=== PATIENT | female | born 1995 | race African-American/Black ===

== ENCOUNTER 2017-10-21 15:11 | Emergency (ER) | payer OTHER ==
[~2017-10-21] VITALS: Ht 165.1 cm; Wt 49.8 kg
[~2017-10-21 15:11] MED LIST: BCPILLS PO
[2017-10-21 15:39] VITALS: Ht 165.1 cm; Wt 49.8 kg
--- NOTE | 2017-10-21 16:48 | EMERGENCY ROOM VISIT NOTE ---
History Report prepared by Leslieibpatel: Shashi Morales Under the Supervision of: Dr. García Botello M.D. First contact with patient: 16:14 Chief Complaint: VAGINAL DISCHARGE Stated Complaint: VAGINAL ISSUES History of Present Illness The patient is a 22 year old black female with a past medical history of UTI who presents to the ED with a cc of constant vaginal discomfort beginning this morning. She rates her discomfort as a 6/10 in severity. She describes the sensation as a tingling sensation. Positive tingling sensation. Negative surgeries, allergies, changes in products, fevers, chills, vaginal discharge, vaginal bleeding, nausea, vomiting, a similar previous experience. The patient states that she took a picture and noticed a lump in her vaginal area. The patient reports that her last normal menstrual period was 2-3 weeks ago. She states that she had a UTI a month ago, but admits it has been treated. Source of History: patient Onset: this morning Position: other (vaginal area) Symptom Intensity: 6/10 Quality: tingling Timing: constant Associated Symptoms: No fevers, No chills, No nausea, No vomiting Review of Systems See HPI for pertinent positives and negatives. A total of ten systems were reviewed and were otherwise negative. Past Medical & Surgical Medical Problems: (1) UTI (urinary tract infection) Family History Patient reports no known family medical history. Social History Smoking Status: Never Smoker Housing Status: lives with roommate Occupation Status: [employer] student Current/Historical Medications Scheduled Control Pills ( Control Pills), 1 TAB PO DAILY Cephalexin (Keflex), 1 CAP PO BID Allergies Coded Allergies: No Known Allergies (Unverified , 10/21/17) Physical Exam Vital Signs Date Time Temp Pulse Resp B/P (MAP) Pulse Ox O2 Delivery O2 Flow Rate FiO2 10/21/17 18:21 37.0 56 18 103/64 100 Room Air 10/21/17 17:24 60 16 102/65 98 Room Air 10/21/17 17:15 58 10/21/17 16:56 98 Room Air 10/21/17 15:39 36.5 66 20 108/73 100 Room Air Physical Exam GENERAL: Awake, alert, well-appearing, NAD HENT: Normocephalic, atraumatic. EYES: Normal conjunctiva. Sclera non-icteric. NECK: Supple. No nuchal rigidity. FROM. RESPIRATORY: CTAB, no rhonchi, wheezing, crackles CARDIAC: RRR, no MRG ABDOMEN: Soft, NTND, BS+ MSK: No chest wall TTP, no LE edema NEURO: GCS 15, CN 2-12 intact, moves all 4s on command SKIN: No rash or jaundice noted. : inflamed urethra, no swelling to lateral labia nor area where bartholin's glands noted, no pain to palpation, no discharge seen on external exam Medical Decision & Procedures Laboratory Results 10/21/17 16:40 Red Blood Count 4.12, Mean Corpuscular Volume 92.0, Mean Corpuscular Hemoglobin 29.9, Mean Corpuscular Hemoglobin Concent 32.5, Mean Platelet Volume 10.6, Neutrophils (%) (Auto) 48.1, Lymphocytes (%) (Auto) 43.5, Monocytes (%) (Auto) 6.6, Eosinophils (%) (Auto) 1.1, Basophils (%) (Auto) 0.7, Neutrophils # (Auto) 2.20, Lymphocytes # (Auto) 1.99, Monocytes # (Auto) 0.30, Eosinophils # (Auto) 0.05, Basophils # (Auto) 0.03 10/21/17 16:40 Test 10/21/17 16:40 White Blood Count 4.57 K/uL (4.8-10.8) Red Blood Count 4.12 M/uL (4.2-5.4) Hemoglobin 12.3 g/dL (12.0-16.0) Hematocrit 37.9 % (37-47) Mean Corpuscular Volume 92.0 fL (80-100) Mean Corpuscular Hemoglobin 29.9 pg (25-34) Mean Corpuscular Hemoglobin Concent 32.5 g/dl (32-36) Platelet Count 182 K/uL (130-400) Mean Platelet Volume 10.6 fL (7.4-10.4) Neutrophils (%) (Auto) 48.1 % Lymphocytes (%) (Auto) 43.5 % Monocytes (%) (Auto) 6.6 % Eosinophils (%) (Auto) 1.1 % Basophils (%) (Auto) 0.7 % Neutrophils # (Auto) 2.20 K/uL (1.4-6.5) Lymphocytes # (Auto) 1.99 K/uL (1.2-3.4) Monocytes # (Auto) 0.30 K/uL (0.11-0.59) Eosinophils # (Auto) 0.05 K/uL (0-0.5) Basophils # (Auto) 0.03 K/uL (0-0.2) RDW Standard Deviation 44.8 fL (36.4-46.3) RDW Coefficient of Variation 13.5 % (11.5-14.5) Immature Granulocyte % (Auto) 0.0 % Immature Granulocyte # (Auto) 0.00 K/uL (0.00-0.02) Urine Color YELLOW Urine Appearance CLEAR (CLEAR) Urine pH >= 9.0 (4.5-7.5) Urine Specific [place] 1.025 (1.000-1.030) Urine Protein NEG (NEG) Urine Glucose (UA) NEG (NEG) Urine Ketones TRACE (NEG) Urine Occult Blood NEG (NEG) Urine Nitrite NEG (NEG) Urine Bilirubin NEG (NEG) Urine Urobilinogen NEG (NEG) Urine Leukocyte Esterase TRACE (NEG) Urine WBC (Auto) 1-5 /hpf (0-5) Urine RBC (Auto) 0-4 /hpf (0-4) Urine Hyaline Casts (Auto) 1-5 /lpf (0-5) Urine Epithelial Cells (Auto) >30 /lpf (0-5) Urine Bacteria (Auto) 1+ (NEG) Urine Test NEG (NEG) Anion Gap 6.0 mmol/L (3-11) Est Creatinine Clear Calc Drug Dose 95.8 ml/min Estimated GFR () 136.5 Estimated GFR (Non- 117.7 BUN/Creatinine Ratio 17.1 (10-20) Calcium Level 8.3 mg/dl (8.5-10.1) Total Bilirubin 0.4 mg/dl (0.2-1) Aspartate Amino Transf (AST/SGOT) 15 U/L (15-37) Alanine Aminotransferase (ALT/SGPT) 15 U/L (12-78) Alkaline Phosphatase 35 U/L (45-117) Total Protein 6.5 gm/dl (6.4-8.2) Albumin 3.5 gm/dl (3.4-5.0) Globulin 3.0 gm/dl (2.5-4.0) Albumin/Globulin Ratio 1.2 (0.9-2) Laboratory results reviewed by me Medications Administered Medications (Trade) Dose Ordered Sig/Jamarcus Route Start Time Stop Time Status Last Admin Dose Admin Cephalexin Monohydrate (Keflex Cap) 500 mg NOW ONCE PO 10/21/17 17:45 10/21/17 17:46 DC 10/21/17 17:49 500 MG Ibuprofen (Motrin Tab) 600 mg NOW STAT PO 10/21/17 17:42 10/21/17 17:43 DC 10/21/17 17:48 600 MG Acetaminophen (Tylenol Tab) 1,000 mg NOW STAT PO 10/21/17 17:42 10/21/17 17:43 DC 10/21/17 17:49 1,000 MG ED Course 1627: The patient was evaluated in room C01B. A complete history and physical exam was performed. 180: I reevaluated the patient. Discussed results and discharge instructions: She verbalized understanding and agreement. The patient is ready for discharge. Medical Decision Triage Nursing notes reviewed. The patient's presentation and history were concerning for cystitis, kidney stone, STD, pema, bartholin's cyst/abscess, cellulitis, abscess. Patient was seen and evaluated the bedside. is no prior medical problems. Patient noted that she has some mild discomfort when wiping when urinating today patient did take a temperature. Patient noted that the discomfort was mainly midline. Patient denied any hematuria. Patient denies any vaginal discharge or bleeding. Less pressure. His proximal to 2 weeks prior normal. Patient denies any trauma to the area. Patient denies any fevers , chills, nausea, vomiting. Asians exam is fairly unremarkable. exam did not show swelling to the lateral area concerning for Bartholin's cysts. Patient did have an inflamed enlarged urethra. Patient's UA with questionable cystitis however given the patient's symptoms we will treat. Patient was given first dose of Keflex here. Patient's white blood cell count within normal limits. Patient had normal kidney function. Patient was deemed suitable for outpatient follow-up and treatment. Patient was given strict follow-up, discharge, and return precautions. All questions were answered. Patient was deemed suitable for outpatient follow-up at this time. Patient agreed with the plan of care and was safely discharged home. Medication Reconcilliation Current Medication List: was personally reviewed by me Blood Pressure Screening Patient's blood pressure: Normal blood pressure Impression Primary Impression: Urethritis Scribe Attestation The scribe's documentation has been prepared under my direction and personally reviewed by me in its entirety. I confirm that the note above accurately reflects all work, treatment, procedures, and medical decision making performed by me. Departure Information Dispostion Home / Self-Care Prescriptions Cephalexin (KEFLEX) 500 Mg Cap 1 CAP PO BID for 7 Days, #14 CAP Prov: García Botello M.D. 10/21/17 Referrals [facility] (PCP) Patient Instructions ED Urethritis Infec Vs Inflam Fem, My [facility] Additional Instructions Please return to the emergency department if you have worsening or recurrent symptoms not amenable to at-home treatment. Please call for a follow-up appointment with her primary care physician. Please take your medications as prescribed. If you have other concerns and/or complaints please feel free to also call your primary care physician's office or return the ED for further evaluation, management, and treatment. You may take 600 mg Ibuprofen every 6 hours as needed for pain with food for no more than 2 consecutive days. You may take tylenol 1000 mg every 6 hours as needed for pain. You may take motrin and tylenol separately or at the same time. Take your medications as prescribed. If taking an antibiotic consider taking a probiotic and/or eating yogurt, but at the least, please take with food as it can cause upset stomach. You have been examined and treated today on an emergency basis only. This is not a substitute for, or an effort to provide, complete comprehensive medical care. It is impossible to recognize and treat all injuries or illnesses in a single emergency department visit. It is therefore important that you follow up closely with [facility], your PCP, and/or your specialist(s). Call as soon as possible for an appointment. Thank you for your time and consideration. I look forward to speaking with you again soon. Please don't hesitate to call us if you have any questions.
[2017-10-21 16:56] VITALS: O2SAT 98
[2017-10-21 16:59] LABS: BASO % 0.7 %; BASO ABS # 0.03 K/uL (0-0.2); COMPLETE YES; EOS % 1.1 %; HEMATOCRIT 37.9 % (37-47); LYMPH % 43.5 %; LYMPH ABS # 1.99 K/uL (1.2-3.4); MEAN CORPUSCULAR HEMOGLOBIN 29.9 pg (25-34); MEAN CORPUSCULAR HGB CONC 32.5 g/dl (32-36); MEAN PLATELET VOLUME 10.6 fL (7.4-10.4); MONO % 6.6 %; NEUT % 48.1 %; PLATELET COUNT 182 K/uL (130-400); RED BLOOD COUNT 4.12 M/uL (4.2-5.4); WHITE BLOOD COUNT 4.57 K/uL (4.8-10.8)
[2017-10-21 17:03] LABS: URINE APPEARANCE CLEAR (CLEAR); URINE BILIRUBIN NEG (NEG); URINE COLOR YELLOW; URINE EPITHELIAL CELL AUTO >30 /lpf (0-5); URINE NITRITE NEG (NEG); URINE PH >= 9.0 (4.5-7.5); URINE SPECIFIC GRAVITY 1.025 (1.000-1.030); UROBILINOGEN NEG (NEG)
[2017-10-21 17:04] LABS: MANUAL MICROSCOPIC REQUIRED? NO; REVIEW REQ? NO
[2017-10-21 17:23] LABS: BUN/CREATININE RATIO 17.1 (10-20); CALCIUM 8.3 mg/dl (8.5-10.1); CREATININE 0.73 mg/dl (0.60-1.20); POTASSIUM 3.8 mmol/L (3.5-5.1)
[2017-10-21 17:25] LABS: ALB/GLOB RATIO 1.2 (0.9-2)
[2017-10-21] MEDS ORDERED: ACETAMINOPHEN 500 MG TAB PO STA (17:42)
[2017-10-21] MEDS ORDERED: IBUPROFEN 600 MG TAB PO STA (17:42)
[2017-10-21] MEDS ORDERED: CEPHALEXIN MONOHYDRATE 250 MG CAP PO ONE (17:45)
[2017-10-21] MEDS ORDERED: CEPH-571 PO (18:08)
[2017-10-21 18:21] VITALS: BP 103/64; PULSE 56; TEMP 37; O2SAT 100
== END 2017-10-21 18:29 | disposition home or self-care (01) ==
LOC: C.EDB 15:12 → C.EDC 18:29
DX: N34.2 Other urethritis (principal); Z87.440 Personal history of urinary (tract) infections; Z79.3 Long term (current) use of hormonal contraceptives